=== PATIENT | male | born 1975 | race Caucasian/White ===

== ENCOUNTER 2018-05-12 14:48 | Emergency (ER) | payer MEDICAID, OTHER ==
[~2018-05-12] VITALS: Ht 170.2 cm; Wt 75.7 kg
[~2018-05-12 14:48] MED LIST: SERT100T PO
[2018-05-12 14:54] VITALS: BP_SYST 136
--- NOTE | 2018-05-12 15:05 | NUR ---
Patient to ER bed 7 to gown for evaluation. Side rails up. Report given to Bijal MENDOZA.
--- NOTE | 2018-05-12 15:10 | NUR ---
Patient brought in by self complaining of right upper arm pain. Patient reports that last night he was pushing himself off the floor when he heard a "pop". Reports having the same pain 1 week ago but has not gone away. Goes from a sharp pain with movement to throbbing. Reports taking ibuprofen with no relief. Pain 8/10. No other complaints/injuries per patient or as noted. Will continue to monitor.
--- NOTE | 2018-05-12 15:26 | NUR ---
VERONICA Julian examining patient.
[2018-05-12] MEDS ORDERED: KETOROLAC TROMETHAMINE 60 MG/2 ML VIAL IM ONE (15:30)
--- NOTE | 2018-05-12 15:35 | NUR ---
medicated per [employer] orders. Patient tolerated well. Will continue to monitor.
[2018-05-12 15:55] VITALS: BP_SYST 132
--- NOTE | 2018-05-12 15:55 | NUR ---
Patient given written and verbal discharge instructions and verbalizes understanding. ER MD discussed with patient the results and treatment provided. Patient in stable condition. ID arm band removed. Rx of Motrin given. Patient educated on pain management and to follow up with PMD. Pain Scale 2/10 tolerable for patient . Opportunity for questions provided and answered. Medication side effect fact sheet provided.
== END 2018-05-12 15:55 | disposition home or self-care (01) ==
LOC: SED 14:48
DX: T81.33XA Disruption of traumatic injury wound repair, initial encounter (principal); R03.0 Elevated blood-pressure reading, without diagnosis of hypertension; Z85.47 Personal history of malignant neoplasm of testis; X58.XXXA Exposure to other specified factors, initial encounter; Y93.89 Activity, other specified; Y92.89 Other specified places as the place of occurrence of the external cause; Y99.8 Other external cause status
CPT/HCPCS: 73080; 96372; 99284; J1885

== ENCOUNTER 2019-05-04 14:33 | Emergency (ER) | payer MEDICAID ==
[~2019-05-04] VITALS: Ht 170.2 cm; Wt 76.2 kg
[2019-05-04 15:02] VITALS: BP_SYST 134
[2019-05-04] MEDS ORDERED: KETOROLAC TROMETHAMINE 60 MG/2 ML VIAL IM ONE (15:30)
[2019-05-04 16:45] VITALS: BP_SYST 133
== END 2019-05-04 16:45 | disposition home or self-care (01) ==
LOC: SED 14:33
DX: S46.201A Unspecified injury of muscle, fascia and tendon of other parts of biceps, right arm, initial encounter (principal); R03.0 Elevated blood-pressure reading, without diagnosis of hypertension; Z85.47 Personal history of malignant neoplasm of testis; X50.9XXA Other and unspecified overexertion or strenuous movements or postures, initial encounter; Y93.66 Activity, soccer; Y92.89 Other specified places as the place of occurrence of the external cause; Y99.8 Other external cause status
CPT/HCPCS: 29105; 73080; 96372; 99283; J1885

== ENCOUNTER 2022-08-29 20:34 | Emergency (ER) | payer MEDICAID ==
[~2022-08-29] VITALS: Ht 170.2 cm; Wt 76.2 kg
[2022-08-29 20:40] VITALS: BP_SYST 130
[2022-08-29] MEDS ORDERED: BACITRACIN 1 GM OINT TP ONE (21:00)
[2022-08-29] MEDS ORDERED: LIDOCAINE/EPI 1% 1:100000 20 ML VIAL INJ ONE (21:00)
[2022-08-29] MEDS ORDERED: LIDOCAINE 1%, 20 ML MDV 20 ML ONE (21:24)
[2022-08-29 22:20] VITALS: BP_SYST 130
== END 2022-08-29 22:20 | disposition home or self-care (01) ==
LOC: SED 20:34
DX: S61.215A Laceration without foreign body of left ring finger without damage to nail, initial encounter (principal); Z79.899 Other long term (current) drug therapy; W26.0XXA Contact with knife, initial encounter; Y93.89 Activity, other specified; Y92.89 Other specified places as the place of occurrence of the external cause; Y99.8 Other external cause status
CPT/HCPCS: 99282; 12002; J2001

== ENCOUNTER 2022-08-31 10:50 | Emergency (ER) | payer MEDICAID ==
[~2022-08-31] VITALS: Ht 177.8 cm; Wt 70.8 kg
[2022-08-31 10:55] VITALS: BP_SYST 144
--- NOTE | 2022-08-31 11:12 | NUR ---
Patient to ER bed H1 to gown for evaluation. Side rails up.
--- NOTE | 2022-08-31 11:13 | NUR ---
pt awake a/o x4, verbally responsive. pt reports cutting his 3rd digit to right hand with razer while working in his garage. pt reports he went to urgent car, however they wouldnt take insurance so pt came to ED. pt denies any pain at this time. no active bleeding at this time to laceration. awaiting
--- NOTE | 2022-08-31 11:20 | NUR ---
ER at bedside examining patient.
--- NOTE | 2022-08-31 11:45 | NUR ---
PT TOLERATED WOUND REPAIR WELL.
--- NOTE | 2022-08-31 11:48 | NUR ---
Patient given written and verbal discharge instructions and verbalizes understanding. ER MD discussed with patient the results and treatment provided. Patient in stable condition. ID arm band removed. NO Rx given. Patient educated on pain management and to follow up with PMD. Pain Scale 0. Opportunity for questions provided and answered. Medication side effect fact sheet provided.
== END 2022-08-31 11:48 | disposition home or self-care (01) ==
LOC: SED 10:50
DX: S61.211A Laceration without foreign body of left index finger without damage to nail, initial encounter (principal); W26.8XXA Contact with other sharp object(s), not elsewhere classified, initial encounter; Y93.89 Activity, other specified; Y92.89 Other specified places as the place of occurrence of the external cause; Y99.8 Other external cause status; Z79.899 Other long term (current) drug therapy
CPT/HCPCS: 99282